=== PATIENT | female | born 1940 | race Caucasian/White ===

== ENCOUNTER 2022-12-26 12:27 | Observation (INO) | payer MEDICARE ==
[2022-12-26 13:05] LABS: BASOPHILS ABSOLUTE AUTO 0.1 x10-3/uL (0.0-0.1); BASOPHILS PERCENT AUTO 1.2 % (0.2-1.5); EOSINOPHILS ABSOLUTE AUTO 0.2 x10-3/uL (0.0-0.8); EOSINOPHILS PERCENT AUTO 3.5 % (0.6-8.1); LYMPHOCYTES ABSOLUTE AUTO 1.7 x10-3/uL (1.0-4.4); LYMPHOCYTES PERCENT AUTO 33.2 % (18.4-52.1); MEAN CORPUSCULAR HEMOGLOBIN 32.2 pg (23.9-33.9); MEAN CORPUSCULAR HGB CONC 33.4 g/dL (31.9-34.8); MEAN CORPUSCULAR VOLUME 96.2 fL (76.7-100.5); MEAN PLATELET VOLUME 8.5 fL (7.1-12.4); MONOCYTES ABSOLUTE AUTO 0.4 x10-3/uL (0.3-1.0); MONOCYTES PERCENT AUTO 8.4 % (4.4-15.7); NEUTROPHILS ABSOLUTE AUTO 2.8 x10-3/uL (1.5-6.3); NEUTROPHILS PERCENT AUTO 53.7 % (30.8-76.2); PLATELET COUNT,PLT 204 x10(3)uL (151-488); RED BLOOD CELL COUNT 3.43 x10(6)uL (3.60-5.20); RED CELL DISTRIBUTION WIDTH 13.4 % (12.3-16.5); WHITE BLOOD CELL COUNT,WBC 5.3 x10-3/uL (3.0-10.3)
[2022-12-26 13:12] LABS: BLOOD UREA NITROGEN,BUN 22 mg/dL (7-18); BUN/CREATININE RATIO 24.4 (9-20); CALCIUM 9.2 mg/dL (8.6-10.2); CARBON DIOXIDE,CO2 30 mmol/L (21-32); CHLORIDE,CL 106 mmol/L (100-110); CREATININE 0.9 mg/dL (0.55-1.02); ESTIMATED GFR 63 mL/min (>60); GLUCOSE RANDOM 103 mg/dL (80-116); POTASSIUM,K 4.3 mmol/L (3.5-5.3); SODIUM,NA 142 mmol/L (135-145)
[2022-12-26 13:19] LABS: A/G RATIO 1.2; ALANINE AMINOTRANSFERASE,ALT 17 U/L (12-36); ALBUMIN 3.3 g/dL (3.2-4.6); ALKALINE PHOSPHATASE 59 IU/L (56-112); ASPARTATE AMNIOTRANSFERASE,AST 14 IU/L (5-25); BILIRUBIN TOTAL 0.4 mg/dL (0.1-1.3); PROTEIN TOTAL,TP 6.1 g/dL (6.0-8.0)
[2022-12-26 13:28] LABS: C-REACTIVE PROTEIN 0.23 mg/dL (<0.33); TSH ULTRASENSITIVE 1.33 IU/mL (0.36-3.74)
[2022-12-26 13:31] LABS: TROPONIN I < 4.0 pg/mL (4.0-60.3)
[2022-12-26 14:23] LABS: BILIRUBIN,URINE NEGATIVE (NEGATIVE); GLUCOSE,URINE NORMAL (NORMAL); KETONES,URINE NEGATIVE (NEGATIVE); LEUKOCYTE ESTERASE,URINE NEGATIVE (NEGATIVE); NITRITE,URINE NEGATIVE (NEGATIVE); OCCULT BLOOD,URINE NEGATIVE (NEGATIVE); PROTEIN,URINE NEGATIVE (NEGATIVE); UROBILINOGEN,URINE NORMAL (NEGATIVE)
[2022-12-26 14:29] LABS: APPEARANCE,URINE SLIGHTLY CLOUDY (CLEAR); BACTERIA,URINE FEW (NS); COLOR,URINE YELLOW (YELLOW); SQUAMOUS EPITHELIAL CELLS,UR FEW (NS,R,O); WBC,URINE 0-5 (0-5)
[2022-12-26 15:16] LABS: INFLUENZA A NAA NEGATIVE (NEGATIVE); INFLUENZA B NAA NEGATIVE (NEGATIVE)
[2022-12-26 15:28] LABS: CORONAVIRUS COVID-19 NAA NEGATIVE (NEGATIVE)
[2022-12-26] MEDS ORDERED: Acetaminophen 325 MG Tab PO PRN (17:21)
== END 2022-12-27 13:10 | disposition home or self-care (01) ==
LOC: FB.ED 12:27 → FB.MS 16:55
PROVIDERS: ADMIT Family Medicine; ATTEND Family Medicine
DX: I20.89 Other forms of angina pectoris (principal); I48.0 Paroxysmal atrial fibrillation; D64.9 Anemia, unspecified; R00.1 Bradycardia, unspecified; K21.9 Gastro-esophageal reflux disease without esophagitis; I10 Essential (primary) hypertension; Z20.822 Contact with and (suspected) exposure to COVID-19; Z79.01 Long term (current) use of anticoagulants; Z79.899 Other long term (current) drug therapy
CPT/HCPCS: 0240U; 36415; 71046; 80053; 80061; 81001; 84443; 84484; 85025; 85379; 86140; 93005; 93010; 99222; 99238; 99285; G0378

== ENCOUNTER 2024-03-19 06:03 | Day surgery (SDC) | payer MEDICARE ==
[2024-03-19] MEDS ORDERED: Lidocaine 2% 100 MG/5 ML Syringe IVPUSH ONE (06:04)
[2024-03-19] MEDS ORDERED: Lidocaine 2% Viscous Solution 15 ML UD PO ONE (06:04)
[2024-03-19] MEDS ORDERED: Propofol 200 MG/20 ML SDV IV ONE (06:04)
[2024-03-19] MEDS ORDERED: Sodium Chloride 0.9% 10 ML Syringe FLUSH PRN (06:15)
[2024-03-19] MEDS: Lactated Ringers 1,000 ML IV SCH (07:25)
[2024-03-19] MEDS: Simethicone Drops 40 MG/0.6 ML 30 ML Bottle ONE (07:31)
[2024-03-19] MEDS: Iopamidol 755 Mg/ML 100 ML Bottle IV SCH (10:27)
[2024-03-19] MEDS: Diatrizoate Meglumine/Diatrizoate Sodium 37% 30 ML Bottle PO ONE (10:27)
[2024-03-20 20:34] LABS: CARCINOEMBRYONIC ANTIGEN 1.2 ng/mL
== END 2024-03-19 11:15 | disposition home or self-care (01) ==
LOC: FB.SDS 06:03
PROVIDERS: ATTEND Surgery
DX: C18.2 Malignant neoplasm of ascending colon (principal); K57.30 Diverticulosis of large intestine without perforation or abscess without bleeding; E66.9 Obesity, unspecified; Z68.34 Body mass index [BMI] 34.0-34.9, adult; Z79.899 Other long term (current) drug therapy
CPT/HCPCS: 00813; 36415; 74177; 82378; 88305; 99100; A9270-GY; J2704; J7120; Q9963; Q9967